=== PATIENT | male | born 1955 ===

== ENCOUNTER 2017-05-12 12:34 | Day surgery (SDC) | payer OTHER ==
[2017-05-11 12:04] VITALS: BMI 23.6
[2017-05-12] MEDS ORDERED: Iodixanol 320 MG/ML 100 ML BOTTLE IV ONE ×2 (14:08→14:50)
[2017-05-12] MEDS ORDERED: Lidocaine 2% Inj (20ml) ONE ×2 (14:09→14:58)
[2017-05-12] MEDS ORDERED: Midazolam 2 MG/2 ML VIAL ONE (14:51)
[2017-05-12] MEDS ORDERED: Eptifibatide 20 mg/10mL Inj IVP ONE (15:45)
[2017-05-12] MEDS ORDERED: Nitroglycerin 50mg in D5W 50 MG/250 ML BOTTLE IV ONE (15:48)
[2017-05-12] MEDS ORDERED: DiphenhydrAMINE 50 mg/ml Inj ONE (16:08)
[2017-05-12] MEDS ORDERED: Sodium Chloride 0.9% 1,000 ML IV ONE (17:15)
[2017-05-12 19:03] VITALS: TEMP 97.8; O2SAT 97
[2017-05-12 20:29] VITALS: BP 157/90; PULSE 106; RESP 15
--- NOTE | 2017-05-13 18:13 | VAS ---
DATE: 05/12/2017 INDICATION: The patient is a 61-year-old male with past medical history significant for hypertension, insulin-dependent diabetes mellitus, hyperlipidemia, who was evaluated by me for nonhealing ulcers since 01/2017. The patient had initially undergone an amputation of the left fourth metatarsal, which subsequently did not heal and the wound was getting progressively worse with some purulent drainage for which he was admitted to the hospital for concerns for the uncontrolled infection. I was called for further evaluation and treatment of peripheral vascular occlusive disease. PROCEDURES PERFORMED: 1. Distal abdominal aortogram with bilateral iliac runoff. 2. Selective bilateral iliofemoral angiogram runoff. 3. Atherectomy and additional FAMILY REUNIFICATION SPECIALIST of left anterior tibial artery with use of 1.25 Micro CSI atherectomy device and balloon angioplasty with a transition balloon 2.0 to 2.5 and the left anterior tibial artery with multiple tandem lesions involving 70%, 80%, 90%, 100% stenosis, which were reduced down to less than 10% with improvement of ZOHAIB flow up to the level of the ankle. 4. A 6-Iranian right femoral arterial access, Mynx closure device for hemostasis. TECHNIQUES OF PROCEDURE: After obtaining informed consent, the patient was brought to the cardiac catheterization in post-absorptive, non-sedated state. The patient was prepped and draped in the usual sterile fashion. A 2% Xylocaine was used for infiltration anesthesia. Using modified Seldinger technique, 6-Iranian sheaths were introduced into the right femoral artery and right iliofemoral angiogram was performed and DSA angiographic views of below the knee and the right foot profile was obtained. ANGIOGRAPHIC FINDINGS: Right common iliac and external iliac patent, right SFA and profunda femoris patent, SFA severely calcified with no obstructive lesion. Popliteal artery patent, trifurcates into AT, PT, and peroneal. Posterior tibial artery is 100% stump occluded. Peroneal diffusely diseased distally. Anterior tibial artery patent with 70% to 80% stenosis at the level of the ankle, 90% stenosis distally. After obtaining the right iliofemoral angiogram vein runoff over a Glidewire, a catheter was advanced into the abdominal aorta. Abdominal aortogram with bilateral iliac now was performed. Subsequently, the catheter was advanced across the aortoiliac bifurcation up to the left common femoral artery disease. Comprehensive angiographic views of the left SFA, left popliteal below the knee and the left foot profile was obtained. Angiographic findings of the left lower extremity showed left common iliac and external iliac patent, SFA and profunda femoris patent. Popliteal artery patent. PT 100% occluded. Peroneal distally 100% occluded. Anterior tibial artery had multiple tandem lesions, 80% to 90% stenosis with a 100% distal occlusion with complete some occlusion at the level of the dorsalis pedis, flow to the superficial plantar arch via scant collaterals with severe pedal loop disease. The deep plantar arch had minimal flow via the collaterals. TECHNIQUES OF INTERVENTION: After reviewing the above angiographic finding, it was deemed imperative to intervene on the anterior tibial multiple tandem lesions. Over a Glidewire, a 6-Iranian 90 cm Destination Greer sheath was advanced up to the level of the left popliteal artery. Subsequently over 0.014 CXI support catheter, Command ES wire was negotiated through the multiple occlusions and the 90% occlusion up to the level of the ankle. The Command wire was exchanged to a 0.014 Viper wire over which a 1.25 Micro CSI atherectomy of the tandem lesions were done. Subsequently, a 2.0 to 2.5 transition balloon was used for additional balloon angioplasty. Finally, angiogram then showed lesion reduction down to less than 10% with improvement in ZOHAIB flow up to the level of the ankle, microvascular flow to the pedal arch and plantar branches had better improvement in the flow, but pedal arch still needs to be reconsidered. IMPRESSION: Successful FAMILY REUNIFICATION SPECIALIST, atherectomy, and balloon angioplasty of the left anterior tibial artery up to the level of the ankle, severe pedal arch disease, severe right lower extremity disease. RECOMMENDATIONS: Keep the patient on guideline-directed medical therapy, dual-antiplatelet therapy with aspirin, Plavix, statins, and low dose TESSIE inhibitors. The patient should be evaluated in 4 weeks' time for reconstruction of the pedal arch and for contralateral intervention of the right below the knee. I would also get transporting his perfusion of oxygen at the level of the wound to evaluate whether he would need any further vascular intervention. Thank you Dr. Mohamud and Dr. Niki Campa for letting me participate in the care of your patient. Zeb Pederson MD cc: BHASKAR Sutherland MD [facility] # [id number]
== END 2017-05-12 20:15 | disposition short-term general hospital (02) ==
LOC: C.CATHLAB 12:34
PROVIDERS: ATTEND Internal Medicine Interventional Cardiology
DX: I77.1 Stricture of artery (principal); Z79.4 Long term (current) use of insulin; I10 Essential (primary) hypertension; E78.5 Hyperlipidemia, unspecified; E11.9 Type 2 diabetes mellitus without complications
CPT/HCPCS: 36247; 37229; 75625; 75716; 75774; 82948; 85347; 94770; C1714; C1760; C1766; C1769; J1200; J1327; J1644; J2250; J3010; J7040; Q9967

== ENCOUNTER → 2017-06-16 | Day surgery (SDC) | payer OTHER ==
[2017-06-15 10:34] VITALS: BMI 24.3
[~2017-06-16] MED LIST: Iodixanol 320 MG/ML 100 ML BOTTLE IV ONE; Midazolam 2 MG/2 ML VIAL ONE
[2017-06-17 11:59] VITALS: RESP 18; O2SAT 100
--- NOTE | 2017-06-17 13:09 | CARDCATH ---
PROCEDURE DATE: 06/16/2017 INDICATION: Mr. Tobias Nieto is a 61-year-old male with history of hypertension, diabetes and hyperlipidemia, who was admitted to [facility] for evaluation of a wound in the plantar aspect of his first interdigital space. The patient also had a dorsal aspect wound which had been healing well after his last revascularization. He was seen in the embedded firmware engineer's office and the concern was for poor circulation to the plantar aspect of the foot. PROCEDURES PERFORMED: 1. Abdominal aortogram with bilateral iliac runoff. Selective bilateral iliofemoral angiogram runoff. 2. A 5-Greek right femoral artery access. 3. Manual pressure for hemostasis. TECHNIQUES OF PROCEDURE: After obtaining informed consent, the patient was brought to the cardiac cath with post-absorptive, non-sedated state. The patient was prepped and draped in the usual sterile fashion. A 2% lidocaine was used for infiltration anesthesia. Using modified Seldinger technique, 5-Greek sheath was introduced into the right femoral artery and right iliofemoral angiogram runoff was performed. Digital subtraction angiographic use of the right foot was obtained. Angiographic findings of right lower extremity, right common iliac patent. External iliac patent. SFA and profunda femoris patent with mild disease, one-to-two vessels runoff below the knee. Dorsalis pedis artery feeding superficial plantar arch which feeds the collateral to the deep plantar arch. Subsequently, over a Glidewire, Omniflush catheter was advanced to the abdominal aorta. Abdominal aortogram and bilateral iliac runoff was performed. The catheter was then crossed across the aortoiliac bifurcation to the left common femoral artery. Digital subtraction angiographic to the left SAF, left below the knee, left foot profile was obtained. Subsequently, selective angiograms of the left dorsum and plantar aspects of the foot were obtained. Left lower extremity angiographic findings, left common iliac patent, SFA mild disease, popliteal patent, anterior tibial artery has mild mid and distal nonobstructive 30-40% stenosis. Dorsalis pedis patent. Good muscle blush in all the angiosomes of the foot. Plantar aspect is getting collateral feeding into the second interdigital space. The dorsalis pedis at the level of the first interdigital space had high-grade stenosis feeding through the collateral circulation feeding all the angiosomes of the foot. IMPRESSION: 1. Severe microvascular disease. 2. Patent dorsalis pedis with good muscle blush in the all the angiosomes of the foot. RECOMMENDATIONS: Aggressive medical management, modification, up titration of medication and wound care. The patient to undergo debridement by Dr. Mohamud. Thank you Dr. Mohamud for letting me participate in the care of your patient. The patient will be transferred back to [facility] for further treatment. Zeb Pederson MD MTDD
== END | disposition home or self-care (01) ==
LOC: C.CATHLAB 11:21
PROVIDERS: ATTEND Internal Medicine Interventional Cardiology
DX: I70.202 Unspecified atherosclerosis of native arteries of extremities, left leg (principal); I10 Essential (primary) hypertension; E11.9 Type 2 diabetes mellitus without complications; Z79.4 Long term (current) use of insulin; E78.5 Hyperlipidemia, unspecified
CPT/HCPCS: 36200; 75625; 75716; C1769; C1887; J1644; J2250; J3010; Q9967